=== PATIENT | female | born 1960 ===

== ENCOUNTER 2016-12-12 09:48 | Emergency (ER) | payer BC ==
--- NOTE | 2016-12-12 10:42 | UC ---
Throat Pain/Nasal Medardo HPI - HPI Summary HPI Summary: sinus pain and pressure x 7 days , + dizziness, fatigue , no fever, no chills stopped her Zoloft about 10 days ago / just forgot to take it + headaches , no sore throat , - History of Current Complaint Chief Complaint: UCDizziness Stated Complaint: SINUS/HEADACHE Time Seen by Provider: 12/12/16 10:18 Hx Obtained From: Patient Hx Last Menstrual Period: this week Onset/Duration: Gradual Onset, Lasting Days - 7, Still Present Severity: Moderate Associated Signs & Symptoms: Positive: Sinus Discomfort, Nasal Discharge. Negative: Dysphagia, FB Sensation, Drooling, Wheezing, Hoarseness, Fever, Vomiting, Rash - Allergies/Home Medications Allergies/Adverse Reactions: Allergies Allergy/AdvReac Type Severity Reaction Status Date / Time No Known Allergies Allergy Verified 12/12/16 10:07 Home Medications: Home Medications Cholecalciferol [Vitamin D] 3,000 unit PO DAILY 12/12/16 [History Confirmed ] Sertraline* [Zoloft*] 100 mg PO DAILY 12/12/16 [History Confirmed 12/12/16] PMH/Surg Hx/FS Hx/Imm Hx Psychological History Of: Reports: Anxiety, Depression - Surgical History Surgical History: Yes Surgery Procedure, Year, and Place: Right breast lumpectomy, breast implants - Family History Known Family History: Negative: Diabetes - Social History Alcohol Use: Weekly Alcohol Amount: 1-2 Substance Use Type: None Smoking Status (MU): Never Smoked Tobacco Review of Systems Constitutional: Negative Skin: Negative Eyes: Negative ENT: Ear Ache, Nasal Discharge Respiratory: Negative Neurological: Headache, Weakness All Other Systems Reviewed And Are Negative: Yes Physical Exam Triage Information Reviewed: Yes Appearance: Well-Appearing, No Pain Distress, Well-Nourished Vital Signs: Initial Vital Signs Temp 97.8 F 12/12/16 09:52 Pulse 76 12/12/16 09:52 Resp 18 12/12/16 09:52 BP 95/75 12/12/16 09:52 Pulse Ox 100 12/12/16 09:52 Vital Signs Reviewed: Yes Eye Exam: Normal Eyes: Positive: Conjunctiva Clear ENT: Positive: Normal ENT inspection, Hearing grossly normal, Pharynx normal, TMs normal. Negative: Nasal congestion, Nasal drainage, TM bulging, TM dull, TM red Neck: Positive: Supple, Nontender, No Lymphadenopathy Respiratory: Positive: Chest non-tender, Lungs clear, Normal breath sounds, No respiratory distress Cardiovascular: Positive: RRR, No Murmur, Pulses Normal Abdominal Exam: Normal Neurological Exam: Normal Neurological: Positive: Alert Throat Pain/Nasal Course/Dx - Differential Dx/Diagnosis Provider Diagnoses: sinusitis. cerumen impaction Discharge - Discharge Plan Condition: Stable Disposition: HOME Prescriptions: Amoxicillin/Clavulanate TAB* [Augmentin TAB 875*] 875 mg PO BID #20 tab Patient Education Materials: Sinusitis (ED) Referrals: Checo TAFOYA,Calin [Primary Care Provider] - 7 Days Additional Instructions: please start Zoloft 50 mg daily for one week and then increase to 100 mg daily
[2016-12-12 10:49] VITALS: BP 107/74
== END 2016-12-12 11:28 | disposition home or self-care (01) ==
LOC: UCCORT 09:48
DX: J32.9 Chronic sinusitis, unspecified (principal); H61.23 Impacted cerumen, bilateral; F41.9 Anxiety disorder, unspecified; Z91.14 Patient's other noncompliance with medication regimen
CPT/HCPCS: 99202; G0463